=== PATIENT | female | born 2000 | race Caucasian/White ===

== ENCOUNTER 2021-04-20 20:06 | Inpatient (IN) ==
[2021-04-20] MEDS: 0.9 % Sodium Chloride 1,000 ML IVC ONE (22:20)
[2021-04-20 22:21] LABS: Mean Corpuscular Volume 89.7 fL (83.0-100.0)
[2021-04-20 22:23] LABS: Basophils # 0.1 K/mcL (0.0-0.2); Basophils % 0.3 %; Eosinophils # 0.2 K/mcL (0.0-0.6); Eosinophils % 0.9 %; Hematocrit 42.5 % (35.3-44.9); Immature Granulocytes % 0.3 % (0-4); Immature Platelets 0.7 % (1.1-6.1); Lymphocytes # 2.2 K/mcL (0.6-4.6); Lymphocytes % 12.8 %; Mean Corpuscular HGB Conc 32.9 g/dL (31.6-35.5); Mean Corpuscular Hemoglobin 29.5 pg (28.0-33.3); Mean Platelet Volume 8.2 fL (9.4-12.4); Monocytes # 1.3 K/mcL (0.0-1.3); Monocytes % 7.7 %; Neutrophils # 13.4 K/mcL (1.6-8.9); Platelet Count 390 K/mcL (140-400); Red Blood Count 4.74 M/mcL (3.82-4.97); White Blood Count 17.2 K/mcL (4.3-11.1)
[2021-04-20 22:36] LABS: BUN/Creatinine Ratio 26 (6-26); Blood Urea Nitrogen 10 mg/dL (6-20); Calcium 9.3 mg/dL (8.6-10.3); Carbon Dioxide 25 mEq/L (23-29); Chloride 101 mEq/L (98-107); Glucose 122 mg/dL (70-105); Osmolality,Calculated 282 (280-300); Potassium 3.5 mEq/L (3.5-5.1); Sodium 136 mEq/L (136-145); eGFR For African Americans > 60 (> 60); eGFR For Non-African Americans > 60 (> 60)
[2021-04-20 22:52] LABS: Influenza A PCR Negative (Negative); Influenza B PCR Negative (Negative); Resp. Syncytial Virus PCR Negative (Negative)
[2021-04-20 22:53] LABS: SARS-CoV-2 by PCR (In House) Negative (Negative)
[2021-04-21 00:14] LABS: Bacteria,Urine Few per hpf (None-Few); Bilirubin,Urine Negative (Negative); Blood,Urine Large (Negative); Clarity,Urine Ex.Turbid (Clear); Color,Urine Yellow (Yellow); Glucose,Urine (UA) Normal (Normal); Ketones,Urine Negative (Negative); Leukocyte Esterase,Urine Large (Negative); Mucus,Urine Few per lpf (None-Few); Nitrite,Urine Negative (Negative); Protein,Urine >=300 mg/dL (Neg-Trace); RBC,Urine TNTC per hpf (0-3); Squamous Epithelial Cell,Urine Few per hpf (None-Few); Urobilinogen,Urine Normal (Normal); WBC,Urine TNTC per hpf (0-3)
[2021-04-21] MEDS ORDERED: 0.9 % Sodium Chloride 1,000 ML ONE (00:28)
[2021-04-21] MEDS ORDERED: cefTRIAXone 1,000 MG in Water for inj. (sterile) 10 ML IVP ONE (00:38)
[2021-04-21] MEDS: 0.9 % Sodium Chloride 1,000 ML IVC ONE (00:58)
[2021-04-21] MEDS ORDERED: 0.9 % Sodium Chloride 1,000 ML IVC ONE ×2 (02:43→23:38)
[2021-04-21] MEDS ORDERED: Naloxone 0.4 MG/ML INJ IVP PRN (02:50)
[2021-04-21] MEDS ORDERED: *HR* Promethazine 25 MG/ML VIAL IM PRN (02:50)
[2021-04-21] MEDS ORDERED: Ondansetron 4 MG/2 ML VIAL IVP PRN (02:50)
[2021-04-21] MEDS: *HR* Heparin 5,000 UNIT/ML VIAL SQ SCH ×2 (06:30→17:31)
[2021-04-21] MEDS: 0.9 % Sodium Chloride 1,000 ML IVC SCH ×4 (06:36→21:44)
[2021-04-21 06:41] LABS: Basophils # 0.1 K/mcL (0.0-0.2); Basophils % 0.8 %; Eosinophils % 1.1 %; Hemoglobin 10.9 g/dL (11.5-15.4); Immature Granulocytes % 1.1 % (0-4); Immature Platelets 1.3 % (1.1-6.1); Lymphocytes # 1.5 K/mcL (0.6-4.6); Lymphocytes % 11.1 %; Mean Corpuscular Hemoglobin 29.4 pg (28.0-33.3); Mean Corpuscular Volume 88.9 fL (83.0-100.0); Mean Platelet Volume 8.7 fL (9.4-12.4); Monocytes % 7.6 %; Neutrophils # 10.3 K/mcL (1.6-8.9); Nucleated Red Blood Cells 0.2 /100 WBC (0); Platelet Count 276 K/mcL (140-400); Red Blood Count 3.71 M/mcL (3.82-4.97); Segmented Neutrophils % 78.3 %; White Blood Count 13.1 K/mcL (4.3-11.1)
[2021-04-21 06:42] LABS: Eosinophils # 0.1 K/mcL (0.0-0.6)
[2021-04-21 06:56] LABS: Alanine Aminotransferase 12 Units/L (7-52); Albumin 3.3 g/dL (3.5-5.7); Albumin/Globulin Ratio 1.4 (1.1-2.2); Alkaline Phosphatase 68 Units/L (34-104); Aspartate Amino Transferase 20 Units/L (13-39); BUN/Creatinine Ratio 39 (6-26); Bilirubin,Total 0.4 mg/dL (0.3-1.0); Blood Urea Nitrogen 9 mg/dL (6-20); Calcium 8.4 mg/dL (8.6-10.3); Carbon Dioxide 26 mEq/L (23-29); Chloride 106 mEq/L (98-107); Globulin 2.4 g/dL (2.4-3.5); Glucose 124 mg/dL (70-105); Osmolality,Calculated 288 (280-300); Potassium 3.8 mEq/L (3.5-5.1); Sodium 139 mEq/L (136-145); Total Protein 5.7 g/dL (6.4-8.9); eGFR For African Americans > 60 (> 60); eGFR For Non-African Americans > 60 (> 60)
[2021-04-21] MEDS: Norepinephrine 4 MG/254 ML IV.SOLN IVC SCH ×2 (09:47→10:00)
[2021-04-21] MEDS: Acetaminophen 325 MG TABLET PO PRN ×2 (10:01→21:45)
[2021-04-21] MEDS: Baclofen 10 MG TABLET PO SCH ×2 (14:18→20:03)
[2021-04-21] MEDS: Aspirin Enteric Coated 81 MG Tablet PO SCH (14:18)
[2021-04-21] MEDS: Gabapentin 300 MG CAPSULE PO SCH ×2 (14:18→20:03)
[2021-04-22 02:31] LABS: Basophils % 0.5 %; Eosinophils # 0.3 K/mcL (0.0-0.6); Eosinophils % 5.1 %; Hematocrit 30.1 % (35.3-44.9); Hemoglobin 9.6 g/dL (11.5-15.4); Immature Granulocytes % 0.2 % (0-4); Lymphocytes # 2.1 K/mcL (0.6-4.6); Lymphocytes % 32.2 %; Mean Corpuscular HGB Conc 31.9 g/dL (31.6-35.5); Mean Corpuscular Hemoglobin 29.4 pg (28.0-33.3); Mean Platelet Volume 8.3 fL (9.4-12.4); Monocytes # 0.4 K/mcL (0.0-1.3); Monocytes % 6.5 %; Neutrophils # 3.6 K/mcL (1.6-8.9); Platelet Count 239 K/mcL (140-400); Red Blood Count 3.27 M/mcL (3.82-4.97); Red Cell Distribution Width 13.2 % (11.5-14.5); Segmented Neutrophils % 55.5 %
[2021-04-22 02:32] LABS: White Blood Count 6.4 K/mcL (4.3-11.1)
[2021-04-22 02:52] LABS: BUN/Creatinine Ratio 28 (6-26); Blood Urea Nitrogen 7 mg/dL (6-20); Calcium 7.7 mg/dL (8.6-10.3); Carbon Dioxide 26 mEq/L (23-29); Chloride 111 mEq/L (98-107); Glucose 102 mg/dL (70-105); Osmolality,Calculated 290 (280-300); Potassium 2.9 mEq/L (3.5-5.1); Sodium 141 mEq/L (136-145); eGFR For African Americans > 60 (> 60); eGFR For Non-African Americans > 60 (> 60)
[2021-04-22] MEDS: 0.9 % Sodium Chloride 1,000 ML IVC SCH ×2 (03:44→08:29)
[2021-04-22] MEDS: *HR* Heparin 5,000 UNIT/ML VIAL SQ SCH ×2 (05:26→17:36)
[2021-04-22] MEDS ORDERED: Potassium Chloride 40 MEQ, Lidocaine 1% 2 ML in 0.9 % Sodium Chloride 500 ML IVPB ONE (07:58)
[2021-04-22] MEDS: Baclofen 10 MG TABLET PO SCH ×3 (08:21→20:35)
[2021-04-22] MEDS: PARoxetine 10 MG TABLET PO SCH (08:21)
[2021-04-22] MEDS: Gabapentin 300 MG CAPSULE PO SCH ×3 (08:21→20:35)
[2021-04-22] MEDS: Aspirin Enteric Coated 81 MG Tablet PO SCH (08:22)
[2021-04-22] MEDS: cefTRIAXone 1,000 MG in Water for inj. (sterile) 10 ML IVP SCH (08:22)
[2021-04-22] MEDS: Acetaminophen 325 MG TABLET PO PRN ×2 (08:32→14:45)
[2021-04-22] MEDS: *HR* HYDROcodone/Acet 5/325 mg TABLET PO PRN ×2 (10:56→20:35)
[2021-04-22] MEDS ORDERED: Sennosides 8.6 MG TABLET PO SCH (21:00)
[2021-04-23] MEDS: *HR* Heparin 5,000 UNIT/ML VIAL SQ SCH (05:20)
[2021-04-23 05:49] LABS: Basophils # 0.1 K/mcL (0.0-0.2); Basophils % 0.7 %; Eosinophils # 0.3 K/mcL (0.0-0.6); Eosinophils % 3.9 %; Hematocrit 32.3 % (35.3-44.9); Hemoglobin 10.3 g/dL (11.5-15.4); Immature Granulocytes % 0.1 % (0-4); Lymphocytes # 2.4 K/mcL (0.6-4.6); Lymphocytes % 35.6 %; Mean Corpuscular HGB Conc 31.9 g/dL (31.6-35.5); Mean Corpuscular Hemoglobin 29.1 pg (28.0-33.3); Mean Corpuscular Volume 91.2 fL (83.0-100.0); Mean Platelet Volume 8.3 fL (9.4-12.4); Monocytes # 0.4 K/mcL (0.0-1.3); Monocytes % 6.4 %; Neutrophils # 3.6 K/mcL (1.6-8.9); Platelet Count 263 K/mcL (140-400); Red Blood Count 3.54 M/mcL (3.82-4.97); Segmented Neutrophils % 53.3 %; White Blood Count 6.9 K/mcL (4.3-11.1)
[2021-04-23 06:15] LABS: BUN/Creatinine Ratio 18 (6-26); Blood Urea Nitrogen 4 mg/dL (6-20); Calcium 9.1 mg/dL (8.6-10.3); Carbon Dioxide 29 mEq/L (23-29); Chloride 106 mEq/L (98-107); Glucose 90 mg/dL (70-105); Osmolality,Calculated 286 (280-300); Potassium 4.3 mEq/L (3.5-5.1); Sodium 140 mEq/L (136-145); eGFR For African Americans > 60 (> 60); eGFR For Non-African Americans > 60 (> 60)
[2021-04-23] MEDS: Baclofen 10 MG TABLET PO SCH (07:58)
[2021-04-23] MEDS: Aspirin Enteric Coated 81 MG Tablet PO SCH (07:58)
[2021-04-23] MEDS: Gabapentin 300 MG CAPSULE PO SCH (07:58)
[2021-04-23] MEDS: PARoxetine 10 MG TABLET PO SCH (07:58)
[2021-04-23] MEDS: cefTRIAXone 1,000 MG in Water for inj. (sterile) 10 ML IVP SCH (07:59)
[2021-04-23 10:39] VITALS: BP 113/74; PULSE 78; TEMP 98.3; O2SAT 99
== END 2021-04-23 16:41 | disposition home or self-care (01) | DRG 698 ==
LOC: EMEROOARM 20:06 → 3NENU 20:06 → SUATTDRO 04-21 03:53 → 3NENU 04-21 04:41 → SUATTDRO 04-22 19:52
PROVIDERS: ADMIT Family Medicine; ATTEND Internal Medicine

== ENCOUNTER 2021-06-30 00:42 | Inpatient (IN) ==
[2021-06-30] MEDS ORDERED: Melatonin 3 MG TABLET PO PRN (03:56)
[2021-06-30] MEDS ORDERED: *HR* OxyCODONE Immed Rel 5 MG TABLET PO PRN (03:56)
[2021-06-30] MEDS ORDERED: Ondansetron 4 MG/2 ML VIAL IVP PRN (03:56)
[2021-06-30] MEDS ORDERED: Acetaminophen 325 MG TABLET PO PRN (03:56)
[2021-06-30] MEDS ORDERED: Naloxone 0.4 MG/ML INJ IVP PRN (03:56)
[2021-06-30] MEDS ORDERED: Remdesivir 200 MG in 0.9 % Sodium Chloride 100 ML IVPB ONE (06:00)
[2021-06-30] MEDS: *HR* Enoxaparin 40 MG/0.4 ML SYRINGE SQ SCH (06:22)
[2021-06-30] MEDS: Gabapentin 300 MG CAPSULE PO SCH ×3 (07:51→20:42)
[2021-06-30] MEDS: Dexamethasone Sodium Phos/PF 10 MG/ML VIAL IVP SCH (07:52)
[2021-06-30] MEDS ORDERED: Metoprolol XL (24 HR) Succ 25 MG TAB.ER.24H PO SCH (12:45)
[2021-06-30] MEDS ORDERED: Isovue-370 500 ML BOTTLE IVP ONE (13:52)
[2021-06-30 13:58] LABS: Hematocrit 41.7 % (35.3-44.9); Hemoglobin 13.2 g/dL (11.5-15.4); Immature Granulocytes % 0.2 % (0-4); Lymphocytes # 0.6 K/mcL (0.6-4.6); Lymphocytes % 13.7 %; Mean Corpuscular HGB Conc 31.7 g/dL (31.6-35.5); Mean Corpuscular Hemoglobin 29.1 pg (28.0-33.3); Mean Corpuscular Volume 92.1 fL (83.0-100.0); Mean Platelet Volume 8.4 fL (9.4-12.4); Monocytes # 0.1 K/mcL (0.0-1.3); Monocytes % 2.7 %; Neutrophils # 3.3 K/mcL (1.6-8.9); Platelet Count 267 K/mcL (140-400); Red Blood Count 4.53 M/mcL (3.82-4.97); Red Cell Distribution Width 13.3 % (11.5-14.5); Segmented Neutrophils % 83.4 %
[2021-06-30 14:04] LABS: INR 1.2; Prothrombin Time 13.4 Seconds (9.4-12.1)
[2021-06-30 14:26] LABS: Alanine Aminotransferase 9 Units/L (7-52); Albumin 4.3 g/dL (3.5-5.7); Albumin/Globulin Ratio 1.3 (1.1-2.2); Alkaline Phosphatase 72 Units/L (34-104); Aspartate Amino Transferase 16 Units/L (13-39); BUN/Creatinine Ratio 11 (6-26); Bilirubin,Total 0.2 mg/dL (0.3-1.0); Blood Urea Nitrogen 4 mg/dL (6-20); C-Reactive Protein 21 mg/L (Less than 10); Calcium 8.9 mg/dL (8.6-10.3); Carbon Dioxide 21 mEq/L (23-29); Chloride 102 mEq/L (98-107); Chol/HDL Ratio 5.4 (0-4.9); Cholesterol 182 mg/dL (< 200); Ferritin 244 ng/mL (10-120); Globulin 3.2 g/dL (2.4-3.5); Glucose 264 mg/dL (70-105); HDL Cholesterol 34 mg/dL (40-59); LDL Cholesterol,Calculated 125 mg/dL (< 100); Lactate Dehydrogenase 201 Units/L (140-271); Magnesium 1.8 mg/dL (1.6-2.6); Osmolality,Calculated 292 (280-300); Phosphorous 2.2 mg/dL (2.7-4.5); Sodium 138 mEq/L (136-145); Total Protein 7.5 g/dL (6.4-8.9); Triglycerides 116 mg/dL (< 150); eGFR For African Americans > 60 (> 60); eGFR For Non-African Americans > 60 (> 60)
[2021-06-30] MEDS ORDERED: Dextrose Gel 15 GM/37.5 ML TUBE PO PRN ×2 (14:56)
[2021-06-30] MEDS ORDERED: *HR* Dextrose 50 % in Water (Syg) 50 ML SYRINGE IVP PRN (14:56)
[2021-06-30] MEDS ORDERED: D5% in Water 1,000 ML IVC PRN (14:56)
[2021-06-30] MEDS: Baclofen 10 MG TABLET PO SCH ×2 (15:11→20:43)
[2021-06-30] MEDS: levoFLOXacin 750 MG/150 ML 750 MG/150 ML BAG IVPB SCH (15:12)
[2021-06-30] MEDS: Insulin LISPRO 300 UNITS/3 ML VIAL SUBQ SCH (17:01)
[2021-06-30] MEDS ORDERED: Metoprolol XL (24 HR) Succ 25 MG TAB.ER.24H PO ONE (17:54)
[2021-06-30] MEDS ORDERED: Ringers Solution, Lactated 500 ML IVC SCH (18:00)
[2021-06-30] MEDS: Sennosides 8.6 MG TABLET PO SCH (20:43)
[2021-06-30] MEDS: *HR* HYDROcodone/Acet 5/325 mg TABLET PO PRN (23:02)
[2021-07-01] MEDS ORDERED: Ringers Solution, Lactated 500 ML IVC ONE (03:45)
[2021-07-01] MEDS: Remdesivir 100 MG in 0.9 % Sodium Chloride 100 ML IVPB SCH (04:14)
[2021-07-01 04:48] LABS: Estimated Average Glucose 103 mg/dl; Hemoglobin A1C 5.2 %
[2021-07-01 04:56] LABS: Albumin 3.6 g/dL (3.5-5.7); Albumin/Globulin Ratio 1.5 (1.1-2.2); Bilirubin,Indirect 0.2 mg/dL (0.0-1.0); Bilirubin,Total 0.2 mg/dL (0.3-1.0); Globulin 2.4 g/dL (2.4-3.5)
[2021-07-01] MEDS: *HR* Enoxaparin 40 MG/0.4 ML SYRINGE SQ SCH (05:27)
[2021-07-01] MEDS ORDERED: Ringers Solution, Lactated 500 ML IVC SCH (07:30)
[2021-07-01] MEDS ORDERED: DAPTOmycin 750 MG in 0.9 % Sodium Chloride 100 ML IVPB SCH (08:00)
[2021-07-01] MEDS: Insulin LISPRO 300 UNITS/3 ML VIAL SUBQ SCH ×3 (08:21→16:10)
[2021-07-01] MEDS: Gabapentin 300 MG CAPSULE PO SCH ×3 (08:22→20:56)
[2021-07-01] MEDS: Aspirin Enteric Coated 81 MG Tablet PO SCH (08:22)
[2021-07-01] MEDS: PARoxetine 10 MG TABLET PO SCH (08:22)
[2021-07-01] MEDS: Baclofen 10 MG TABLET PO SCH ×3 (08:22→20:57)
[2021-07-01] MEDS: Cholecalciferol (D-3) 1,000 UNIT (25MCG) TABLET PO SCH (08:22)
[2021-07-01] MEDS: Ascorbic Acid 500 MG TABLET PO SCH (08:22)
[2021-07-01] MEDS: levoFLOXacin 750 MG/150 ML 750 MG/150 ML BAG IVPB SCH (08:23)
[2021-07-01] MEDS: Dexamethasone Sodium Phos/PF 10 MG/ML VIAL IVP SCH (09:48)
[2021-07-01] MEDS: Nitrofurantoin (BID) 100 MG CAPSULE PO SCH (15:31)
[2021-07-01] MEDS: Sennosides 8.6 MG TABLET PO SCH (20:57)
[2021-07-01] MEDS: *HR* HYDROcodone/Acet 5/325 mg TABLET PO PRN (23:28)
[2021-07-02] MEDS: Remdesivir 100 MG in 0.9 % Sodium Chloride 100 ML IVPB SCH (04:23)
[2021-07-02 05:11] LABS: Albumin 3.8 g/dL (3.5-5.7); Albumin/Globulin Ratio 1.4 (1.1-2.2); Bilirubin,Indirect 0.3 mg/dL (0.0-1.0); Bilirubin,Total 0.3 mg/dL (0.3-1.0); Globulin 2.7 g/dL (2.4-3.5); Total Protein 6.5 g/dL (6.4-8.9)
[2021-07-02 05:12] LABS: BUN/Creatinine Ratio 43 (6-26); Blood Urea Nitrogen 9 mg/dL (6-20); Calcium 8.5 mg/dL (8.6-10.3); Carbon Dioxide 28 mEq/L (23-29); Chloride 104 mEq/L (98-107); Glucose 113 mg/dL (70-105); Magnesium 2.1 mg/dL (1.6-2.6); Osmolality,Calculated 285 (280-300); Phosphorous 2.5 mg/dL (2.7-4.5); Potassium 3.9 mEq/L (3.5-5.1); Sodium 138 mEq/L (136-145); eGFR For African Americans > 60 (> 60); eGFR For Non-African Americans > 60 (> 60)
[2021-07-02] MEDS: *HR* Enoxaparin 40 MG/0.4 ML SYRINGE SQ SCH (05:30)
[2021-07-02] MEDS: Insulin LISPRO 300 UNITS/3 ML VIAL SUBQ SCH (07:59)
[2021-07-02] MEDS: PARoxetine 10 MG TABLET PO SCH (08:00)
[2021-07-02] MEDS: Aspirin Enteric Coated 81 MG Tablet PO SCH (08:00)
[2021-07-02] MEDS: Gabapentin 300 MG CAPSULE PO SCH (08:00)
[2021-07-02] MEDS: Cholecalciferol (D-3) 1,000 UNIT (25MCG) TABLET PO SCH (08:00)
[2021-07-02] MEDS: Ascorbic Acid 500 MG TABLET PO SCH (08:00)
[2021-07-02] MEDS: Baclofen 10 MG TABLET PO SCH (08:00)
[2021-07-02] MEDS: Nitrofurantoin (BID) 100 MG CAPSULE PO SCH (08:00)
[2021-07-02] MEDS: Dexamethasone Sodium Phos/PF 10 MG/ML VIAL IVP SCH (08:03)
[2021-07-02 11:05] VITALS: O2SAT 95
[2021-07-02 11:07] VITALS: BP 106/58; PULSE 89; TEMP 98.2
== END 2021-07-02 15:35 | disposition home or self-care (01) | DRG 177 ==
LOC: 2NENU → SUATTDRO 03:12
PROVIDERS: ADMIT Family Medicine; ATTEND Family Medicine

== ENCOUNTER 2021-09-19 22:40 | Inpatient (IN) ==
[2021-09-20] MEDS ORDERED: Naloxone 0.4 MG/ML INJ IVP PRN (05:40)
[2021-09-20] MEDS ORDERED: Melatonin 3 MG TABLET PO PRN (05:40)
[2021-09-20] MEDS: 0.9 % Sodium Chloride 1,000 ML IVC SCH ×2 (06:05→16:14)
[2021-09-20] MEDS ORDERED: Perflutren Lipid Microsphere 1.3 ML in 0.9 % Sodium Chloride 8.7 ML IVP PRN (06:35)
[2021-09-20 09:00] LABS: Basophils % 0.4 %; Eosinophils % 0.7 %; Hematocrit 40.2 % (35.3-44.9); Hemoglobin 13.4 g/dL (11.5-15.4); Immature Granulocytes % 0.6 % (0-4); Lymphocytes # 0.9 K/mcL (0.6-4.6); Lymphocytes % 16.2 %; Mean Corpuscular HGB Conc 33.3 g/dL (31.6-35.5); Mean Corpuscular Hemoglobin 29.1 pg (28.0-33.3); Mean Corpuscular Volume 87.4 fL (83.0-100.0); Monocytes # 0.2 K/mcL (0.0-1.3); Monocytes % 3.5 %; Neutrophils # 4.3 K/mcL (1.6-8.9); Platelet Count 278 K/mcL (140-400); Red Cell Distribution Width 12.3 % (11.5-14.5); Segmented Neutrophils % 78.6 %; White Blood Count 5.4 K/mcL (4.3-11.1)
[2021-09-20] MEDS ORDERED: levoFLOXacin 500 MG/100 ML 500 MG/100 ML BAG IVPB SCH (09:00)
[2021-09-20 09:31] LABS: Blood Urea Nitrogen 5 mg/dL (6-20); Calcium 8.6 mg/dL (8.6-10.3); Carbon Dioxide 20 mEq/L (23-29); Chloride 109 mEq/L (98-107); Glucose 103 mg/dL (70-105); Magnesium 1.7 mg/dL (1.6-2.6); Osmolality,Calculated 286 (280-300); Potassium 5.1 mEq/L (3.5-5.1); Sodium 139 mEq/L (136-145)
[2021-09-20] MEDS ORDERED: Isovue-370 500 ML BOTTLE IVP ONE ×2 (09:40→09:41)
[2021-09-20] MEDS: Gabapentin 300 MG CAPSULE PO SCH ×3 (10:28→21:35)
[2021-09-20] MEDS: Baclofen 10 MG TABLET PO SCH ×3 (10:28→21:35)
[2021-09-20] MEDS: PARoxetine 20 MG TABLET PO SCH (10:28)
[2021-09-20] MEDS ORDERED: ALPRAZolam 0.5 MG TABLET PO PRN (11:43)
[2021-09-20] MEDS ORDERED: *HR* HYDROcodone/Acet 5/325 mg TABLET PO PRN (11:51)
[2021-09-20] MEDS: Bisacodyl 10 MG RECTAL SUPPOSITORY RC SCH (16:13)
[2021-09-20] MEDS ORDERED: 0.9 % Sodium Chloride 500 ML IVC ONE (16:51)
[2021-09-20] MEDS ORDERED: DAPTOmycin 400 MG in 0.9 % Sodium Chloride 100 ML IVPB SCH (17:00)
[2021-09-20] MEDS: DAPTOmycin 400 MG in 0.9 % Sodium Chloride 100 ML IVPB SCH (18:38)
[2021-09-20] MEDS: Acetaminophen 325 MG TABLET PO PRN (19:47)
[2021-09-20] MEDS: levoFLOXacin 750 MG/150 ML 750 MG/150 ML BAG IVPB SCH (21:35)
[2021-09-20] MEDS: Sennosides 8.6 MG TABLET PO SCH (21:35)
[2021-09-21] MEDS: Acetaminophen 325 MG TABLET PO PRN (02:31)
[2021-09-21 04:56] LABS: Mean Corpuscular HGB Conc 32.7 g/dL (31.6-35.5); Mean Corpuscular Hemoglobin 30.2 pg (28.0-33.3); Mean Corpuscular Volume 92.2 fL (83.0-100.0); Mean Platelet Volume 8.6 fL (9.4-12.4); Platelet Count 246 K/mcL (140-400); Red Blood Count 3.58 M/mcL (3.82-4.97); Red Cell Distribution Width 12.6 % (11.5-14.5); White Blood Count 5.6 K/mcL (4.3-11.1)
[2021-09-21 05:00] LABS: Hemoglobin 10.8 g/dL (11.5-15.4)
[2021-09-21 05:20] LABS: BUN/Creatinine Ratio 37 (6-26); Blood Urea Nitrogen 10 mg/dL (6-20); Calcium 7.9 mg/dL (8.6-10.3); Carbon Dioxide 24 mEq/L (23-29); Chloride 111 mEq/L (98-107); Glucose 98 mg/dL (70-105); Magnesium 1.6 mg/dL (1.6-2.6); Osmolality,Calculated 293 (280-300); Phosphorous 2.9 mg/dL (2.7-4.5); Potassium 3.4 mEq/L (3.5-5.1); Sodium 142 mEq/L (136-145); eGFR For African Americans > 60 (> 60); eGFR For Non-African Americans > 60 (> 60)
[2021-09-21] MEDS: 0.9 % Sodium Chloride 1,000 ML IVC SCH ×2 (05:56→09:03)
[2021-09-21] MEDS ORDERED: Potassium Chloride Elixir 20 MEQ/15 ML UDC PO ONE (09:00)
[2021-09-21] MEDS: PARoxetine 20 MG TABLET PO SCH (09:02)
[2021-09-21] MEDS: Baclofen 10 MG TABLET PO SCH ×3 (09:02→20:57)
[2021-09-21] MEDS: Gabapentin 300 MG CAPSULE PO SCH ×3 (09:02→20:57)
[2021-09-21] MEDS: Bisacodyl 10 MG RECTAL SUPPOSITORY RC SCH (09:04)
[2021-09-21 14:14] LABS: Hematocrit 35.1 % (35.3-44.9); Hemoglobin 11.4 g/dL (11.5-15.4)
[2021-09-21] MEDS: polyethylene glycoL 3350 17 GM POWD.PACK PO SCH (15:47)
[2021-09-21] MEDS: DAPTOmycin 400 MG in 0.9 % Sodium Chloride 100 ML IVPB SCH (17:53)
[2021-09-21] MEDS: Sennosides 8.6 MG TABLET PO SCH (20:57)
[2021-09-21] MEDS: levoFLOXacin 750 MG/150 ML 750 MG/150 ML BAG IVPB SCH (20:57)
[2021-09-22] MEDS: 0.9 % Sodium Chloride 1,000 ML IVC SCH ×2 (01:14→15:47)
[2021-09-22] MEDS: Baclofen 10 MG TABLET PO SCH ×3 (07:34→20:26)
[2021-09-22] MEDS: Gabapentin 300 MG CAPSULE PO SCH ×3 (07:35→20:26)
[2021-09-22] MEDS: polyethylene glycoL 3350 17 GM POWD.PACK PO SCH (07:35)
[2021-09-22] MEDS: PARoxetine 20 MG TABLET PO SCH (07:41)
[2021-09-22] MEDS: Acetaminophen 325 MG TABLET PO PRN ×2 (07:42→20:26)
[2021-09-22 08:10] LABS: Basophils % 0.7 %; Eosinophils # 0.1 K/mcL (0.0-0.6); Eosinophils % 2.1 %; Hematocrit 34.9 % (35.3-44.9); Hemoglobin 11.1 g/dL (11.5-15.4); Lymphocytes # 2.3 K/mcL (0.6-4.6); Lymphocytes % 54.8 %; Mean Corpuscular HGB Conc 31.8 g/dL (31.6-35.5); Mean Corpuscular Hemoglobin 29.4 pg (28.0-33.3); Mean Corpuscular Volume 92.6 fL (83.0-100.0); Mean Platelet Volume 8.4 fL (9.4-12.4); Monocytes # 0.4 K/mcL (0.0-1.3); Monocytes % 8.3 %; Neutrophils # 1.4 K/mcL (1.6-8.9); Platelet Count 229 K/mcL (140-400); Red Blood Count 3.77 M/mcL (3.82-4.97); Red Cell Distribution Width 12.4 % (11.5-14.5); Segmented Neutrophils % 34.1 %; White Blood Count 4.2 K/mcL (4.3-11.1)
[2021-09-22 08:29] LABS: BUN/Creatinine Ratio 25 (6-26); Blood Urea Nitrogen 5 mg/dL (6-20); Calcium 8.6 mg/dL (8.6-10.3); Carbon Dioxide 30 mEq/L (23-29); Chloride 107 mEq/L (98-107); Glucose 90 mg/dL (70-105); Osmolality,Calculated 287 (280-300); Potassium 3.6 mEq/L (3.5-5.1); Sodium 140 mEq/L (136-145); eGFR For African Americans > 60 (> 60); eGFR For Non-African Americans > 60 (> 60)
[2021-09-22] MEDS: cefTRIAXone 1,000 MG in 0.9 % Sodium Chloride 10 ML IVP SCH (13:02)
[2021-09-22] MEDS: DAPTOmycin 500 MG in 0.9 % Sodium Chloride 100 ML IVPB SCH (16:59)
[2021-09-22] MEDS: Sennosides 8.6 MG TABLET PO SCH (20:26)
[2021-09-23 03:31] LABS: BUN/Creatinine Ratio 19 (6-26); Blood Urea Nitrogen 5 mg/dL (6-20); Carbon Dioxide 27 mEq/L (23-29); Chloride 105 mEq/L (98-107); Glucose 90 mg/dL (70-105); Osmolality,Calculated 285 (280-300); Potassium 3.7 mEq/L (3.5-5.1); Sodium 139 mEq/L (136-145); eGFR For African Americans > 60 (> 60); eGFR For Non-African Americans > 60 (> 60)
[2021-09-23] MEDS: cefTRIAXone 1,000 MG in 0.9 % Sodium Chloride 10 ML IVP SCH (07:38)
[2021-09-23] MEDS: PARoxetine 20 MG TABLET PO SCH (07:53)
[2021-09-23] MEDS: Baclofen 10 MG TABLET PO SCH ×3 (07:53→20:19)
[2021-09-23] MEDS: Gabapentin 300 MG CAPSULE PO SCH ×3 (07:54→20:19)
[2021-09-23] MEDS: DAPTOmycin 500 MG in 0.9 % Sodium Chloride 100 ML IVPB SCH (18:34)
[2021-09-23] MEDS: Sennosides 8.6 MG TABLET PO SCH (20:19)
[2021-09-24] MEDS ORDERED: 0.9 % Sodium Chloride 500 ML IVC ONE (03:03)
[2021-09-24] MEDS: Gabapentin 300 MG CAPSULE PO SCH ×3 (08:46→21:44)
[2021-09-24] MEDS: Baclofen 10 MG TABLET PO SCH ×3 (08:46→21:44)
[2021-09-24] MEDS: cefTRIAXone 1,000 MG in 0.9 % Sodium Chloride 10 ML IVP SCH (08:46)
[2021-09-24] MEDS: PARoxetine 20 MG TABLET PO SCH (08:47)
[2021-09-24 13:51] LABS: Alanine Aminotransferase 9 Units/L (7-52); Albumin 3.7 g/dL (3.5-5.7); Albumin/Globulin Ratio 1.6 (1.1-2.2); Alkaline Phosphatase 47 Units/L (34-104); Aspartate Amino Transferase 15 Units/L (13-39); BUN/Creatinine Ratio 27 (6-26); Bilirubin,Direct 0.1 mg/dL (0.0-0.2); Bilirubin,Indirect 0.2 mg/dL (0.0-1.0); Bilirubin,Total 0.3 mg/dL (0.3-1.0); Blood Urea Nitrogen 8 mg/dL (6-20); Calcium 8.6 mg/dL (8.6-10.3); Carbon Dioxide 26 mEq/L (23-29); Chloride 106 mEq/L (98-107); Globulin 2.3 g/dL (2.4-3.5); Glucose 91 mg/dL (70-105); Osmolality,Calculated 286 (280-300); Potassium 4.2 mEq/L (3.5-5.1); Sodium 139 mEq/L (136-145); eGFR For African Americans > 60 (> 60); eGFR For Non-African Americans > 60 (> 60)
[2021-09-24] MEDS: DAPTOmycin 500 MG in 0.9 % Sodium Chloride 100 ML IVPB SCH (17:25)
[2021-09-24] MEDS: Sennosides 8.6 MG TABLET PO SCH (21:45)
[2021-09-25 00:51] VITALS: O2SAT 100
[2021-09-25 05:59] LABS: Basophils % 0.4 %; Eosinophils # 0.1 K/mcL (0.0-0.6); Eosinophils % 0.8 %; Hematocrit 36.4 % (35.3-44.9); Hemoglobin 11.7 g/dL (11.5-15.4); Immature Granulocytes % 0.3 % (0-4); Lymphocytes # 2.8 K/mcL (0.6-4.6); Lymphocytes % 28.6 %; Mean Corpuscular HGB Conc 32.1 g/dL (31.6-35.5); Mean Corpuscular Hemoglobin 29.8 pg (28.0-33.3); Mean Corpuscular Volume 92.9 fL (83.0-100.0); Mean Platelet Volume 8.9 fL (9.4-12.4); Monocytes # 0.7 K/mcL (0.0-1.3); Monocytes % 7.4 %; Platelet Count 260 K/mcL (140-400); Red Blood Count 3.92 M/mcL (3.82-4.97); Red Cell Distribution Width 12.8 % (11.5-14.5); Segmented Neutrophils % 62.5 %
[2021-09-25 06:10] LABS: BUN/Creatinine Ratio 30 (6-26); Blood Urea Nitrogen 7 mg/dL (6-20); Calcium 9.1 mg/dL (8.6-10.3); Carbon Dioxide 27 mEq/L (23-29); Chloride 102 mEq/L (98-107); Glucose 88 mg/dL (70-105); Osmolality,Calculated 283 (280-300); Potassium 4.2 mEq/L (3.5-5.1); Sodium 138 mEq/L (136-145); eGFR For African Americans > 60 (> 60); eGFR For Non-African Americans > 60 (> 60)
[2021-09-25 06:17] LABS: White Blood Count 9.6 K/mcL (4.3-11.1)
[2021-09-25] MEDS ORDERED: CLEAR EYES NATURAL TEARS 15 ML BOTTLE BOTH EYES PRN (06:35)
[2021-09-25] MEDS: Gabapentin 300 MG CAPSULE PO SCH ×3 (07:53→21:59)
[2021-09-25] MEDS: levoFLOXacin 750 MG TABLET PO SCH (07:53)
[2021-09-25] MEDS: PARoxetine 20 MG TABLET PO SCH (07:53)
[2021-09-25] MEDS: Baclofen 10 MG TABLET PO SCH ×3 (07:53→22:00)
[2021-09-25] MEDS ORDERED: DAPTOmycin 500 MG in 0.9 % Sodium Chloride 100 ML IVPB ONE (15:00)
[2021-09-25] MEDS: Acetaminophen 325 MG TABLET PO PRN (21:59)
[2021-09-25] MEDS: Sennosides 8.6 MG TABLET PO SCH (21:59)
[2021-09-26] MEDS: Baclofen 10 MG TABLET PO SCH ×2 (07:55→14:15)
[2021-09-26] MEDS: levoFLOXacin 750 MG TABLET PO SCH (07:55)
[2021-09-26] MEDS: Gabapentin 300 MG CAPSULE PO SCH ×2 (07:55→14:14)
[2021-09-26] MEDS: PARoxetine 20 MG TABLET PO SCH (07:55)
[2021-09-26] MEDS ORDERED: DAPTOmycin 500 MG in 0.9 % Sodium Chloride 100 ML IVPB ONE (12:00)
[2021-09-26 14:47] VITALS: BP 99/70; PULSE 105; TEMP 99
== END 2021-09-26 15:50 | disposition home health service (06) | DRG 698 ==
LOC: 3NENU → SUATTDRO 09-20 05:04
PROVIDERS: ADMIT Family Medicine; ATTEND General Practice

== ENCOUNTER 2021-10-21 20:21 | Observation (INO) ==
[2021-10-21] MEDS ORDERED: 0.9 % Sodium Chloride 2,000 ML IV ONE (23:17)
[2021-10-21] MEDS ORDERED: cefTRIAXone 1,000 MG in 0.9 % Sodium Chloride Mini Bag 100 ML IVPB ONE (23:18)
[2021-10-22] MEDS ORDERED: *HR* HYDROcodone/Acet 5/325 mg TABLET PO ONE (00:01)
[2021-10-22 00:14] LABS: Basophils # 0.1 K/mcL (0.0-0.2); Basophils % 0.7 %; Eosinophils # 0.1 K/mcL (0.0-0.6); Eosinophils % 1.7 %; Hematocrit 42.4 % (35.3-44.9); Hemoglobin 13.4 g/dL (11.5-15.4); Immature Granulocytes % 0.3 % (0-4); Lymphocytes # 2.9 K/mcL (0.6-4.6); Lymphocytes % 38.9 %; Mean Corpuscular HGB Conc 31.6 g/dL (31.6-35.5); Mean Corpuscular Hemoglobin 29.3 pg (28.0-33.3); Mean Corpuscular Volume 92.6 fL (83.0-100.0); Mean Platelet Volume 8.5 fL (9.4-12.4); Monocytes # 0.6 K/mcL (0.0-1.3); Monocytes % 8.1 %; Neutrophils # 3.8 K/mcL (1.6-8.9); Platelet Count 284 K/mcL (140-400); Red Blood Count 4.58 M/mcL (3.82-4.97); Red Cell Distribution Width 12.5 % (11.5-14.5); Segmented Neutrophils % 50.3 %; White Blood Count 7.5 K/mcL (4.3-11.1)
[2021-10-22 00:31] LABS: Alanine Aminotransferase 12 Units/L (7-52); Albumin 4.4 g/dL (3.5-5.7); Albumin/Globulin Ratio 1.3 (1.1-2.2); Alkaline Phosphatase 73 Units/L (34-104); Aspartate Amino Transferase 17 Units/L (13-39); BUN/Creatinine Ratio 31 (6-26); Bilirubin,Direct 0.1 mg/dL (0.0-0.2); Bilirubin,Indirect 0.2 mg/dL (0.0-1.0); Bilirubin,Total 0.3 mg/dL (0.3-1.0); Blood Urea Nitrogen 12 mg/dL (6-20); Calcium 9.7 mg/dL (8.6-10.3); Carbon Dioxide 28 mEq/L (23-29); Chloride 101 mEq/L (98-107); Globulin 3.3 g/dL (2.4-3.5); Glucose 90 mg/dL (70-105); Osmolality,Calculated 285 (280-300); Potassium 3.9 mEq/L (3.5-5.1); Sodium 138 mEq/L (136-145); Total Protein 7.7 g/dL (6.4-8.9); eGFR For African Americans > 60 (> 60); eGFR For Non-African Americans > 60 (> 60)
[2021-10-22 01:16] LABS: Bilirubin,Urine Negative (Negative); Blood,Urine Moderate (Negative); Clarity,Urine Turbid (Clear); Color,Urine Yellow (Yellow); Glucose,Urine (UA) Normal (Normal); Ketones,Urine Negative (Negative); Leukocyte Esterase,Urine Moderate (Negative); Nitrite,Urine Negative (Negative); PH,Urine 5.5 pH Units (5.0-8.0); Protein,Urine 100 mg/dL (Neg-Trace); Specific Gravity,Urine >= 1.030 (1.010-1.025); Urobilinogen,Urine Normal (Normal)
[2021-10-22 01:37] LABS: Influenza A PCR Negative (Negative); Influenza B PCR Negative (Negative); Resp. Syncytial Virus PCR Negative (Negative)
[2021-10-22 01:48] LABS: SARS-CoV-2 by PCR (In House) Negative (Negative)
[2021-10-22] MEDS ORDERED: Melatonin 3 MG TABLET PO PRN (02:52)
[2021-10-22] MEDS ORDERED: Naloxone 0.4 MG/ML INJ IVP PRN (02:52)
[2021-10-22] MEDS ORDERED: 0.9 % Sodium Chloride 1,000 ML IVC SCH (03:30)
[2021-10-22] MEDS ORDERED: *HR* HYDROcodone/Acet 5/325 mg TABLET PO PRN (04:37)
[2021-10-22] MEDS: *HR* Heparin 5,000 UNIT/ML VIAL SQ SCH ×2 (05:08→18:34)
[2021-10-22 06:48] LABS: Hematocrit 34.8 % (35.3-44.9); Mean Corpuscular HGB Conc 31.6 g/dL (31.6-35.5); Mean Corpuscular Hemoglobin 29.3 pg (28.0-33.3); Mean Corpuscular Volume 92.8 fL (83.0-100.0); Mean Platelet Volume 8.7 fL (9.4-12.4); Platelet Count 230 K/mcL (140-400); Red Blood Count 3.75 M/mcL (3.82-4.97); Red Cell Distribution Width 12.5 % (11.5-14.5); White Blood Count 7.1 K/mcL (4.3-11.1)
[2021-10-22 07:04] LABS: BUN/Creatinine Ratio 33 (6-26); Blood Urea Nitrogen 8 mg/dL (6-20); Calcium 8.7 mg/dL (8.6-10.3); Carbon Dioxide 25 mEq/L (23-29); Chloride 109 mEq/L (98-107); Glucose 111 mg/dL (70-105); Magnesium 1.8 mg/dL (1.6-2.6); Osmolality,Calculated 289 (280-300); Phosphorous 3.2 mg/dL (2.7-4.5); Potassium 3.5 mEq/L (3.5-5.1); Sodium 140 mEq/L (136-145); eGFR For African Americans > 60 (> 60); eGFR For Non-African Americans > 60 (> 60)
[2021-10-22] MEDS: Baclofen 10 MG TABLET PO SCH ×3 (08:55→22:18)
[2021-10-22] MEDS ORDERED: Diclofenac Sodium [Arthritis Pain] 100 GM Gel..Gram TP PRN (10:20)
[2021-10-22] MEDS: Gabapentin 300 MG CAPSULE PO SCH ×2 (15:12→22:18)
[2021-10-22] MEDS ORDERED: cefTRIAXone 1,000 MG in 0.9 % Sodium Chloride Mini Bag 100 ML IVPB SCH (23:00)
[2021-10-23] MEDS: *HR* Heparin 5,000 UNIT/ML VIAL SQ SCH ×2 (05:55→17:33)
[2021-10-23 06:24] LABS: BUN/Creatinine Ratio 14 (6-26); Blood Urea Nitrogen 4 mg/dL (6-20); Calcium 9.2 mg/dL (8.6-10.3); Carbon Dioxide 24 mEq/L (23-29); Chloride 105 mEq/L (98-107); Potassium 4.2 mEq/L (3.5-5.1); Sodium 139 mEq/L (136-145); eGFR For African Americans > 60 (> 60); eGFR For Non-African Americans > 60 (> 60)
[2021-10-23] MEDS ORDERED: PARoxetine 20 MG TABLET PO SCH (09:00)
[2021-10-23 09:19] LABS: Glucose 91 mg/dL (70-105); Osmolality,Calculated 284 (280-300)
[2021-10-23 10:23] LABS: Basophils # 0.1 K/mcL (0.0-0.2); Basophils % 1.1 %; Eosinophils # 0.2 K/mcL (0.0-0.6); Eosinophils % 2.8 %; Hematocrit 35.3 % (35.3-44.9); Hemoglobin 11.3 g/dL (11.5-15.4); Immature Granulocytes % 2.2 % (0-4); Lymphocytes # 2.8 K/mcL (0.6-4.6); Lymphocytes % 43.4 %; Mean Corpuscular Volume 90.5 fL (83.0-100.0); Mean Platelet Volume 9.1 fL (9.4-12.4); Monocytes # 0.4 K/mcL (0.0-1.3); Monocytes % 6.3 %; Neutrophils # 2.8 K/mcL (1.6-8.9); Nucleated Red Blood Cells 0.5 /100 WBC (0); Platelet Count 249 K/mcL (140-400); Red Cell Distribution Width 12.5 % (11.5-14.5); Segmented Neutrophils % 44.2 %
[2021-10-23 10:41] LABS: White Blood Count 6.4 K/mcL (4.3-11.1)
[2021-10-23] MEDS: Gabapentin 300 MG CAPSULE PO SCH ×2 (12:42→17:34)
[2021-10-23] MEDS: Baclofen 10 MG TABLET PO SCH ×2 (12:43→17:34)
[2021-10-23 13:23] VITALS: BP 106/71; PULSE 83; TEMP 99.3; O2SAT 95
== END 2021-10-23 20:15 | disposition home or self-care (01) ==
LOC: EMEROOARM 20:21 → 3NENU 20:21 → SUATTDRO 10-22 02:10 → 3NENU 10-22 03:03
PROVIDERS: ADMIT Student in an Organized Health Care Education/Training Program; ATTEND Family Medicine

== ENCOUNTER 2021-12-05 16:21 | Observation (INO) ==
[2021-12-05] MEDS ORDERED: 0.9 % Sodium Chloride 1,000 ML IVC ONE ×3 (17:08→20:17)
[2021-12-05 18:46] LABS: Basophils % 0.4 %; Eosinophils # 0.1 K/mcL (0.0-0.6); Eosinophils % 0.9 %; Hematocrit 37.8 % (35.3-44.9); Hemoglobin 12.2 g/dL (11.5-15.4); Immature Granulocytes % 0.1 % (0-4); Lymphocytes # 2.6 K/mcL (0.6-4.6); Lymphocytes % 34.9 %; Mean Corpuscular HGB Conc 32.3 g/dL (31.6-35.5); Mean Corpuscular Hemoglobin 29.8 pg (28.0-33.3); Mean Corpuscular Volume 92.2 fL (83.0-100.0); Mean Platelet Volume 8.8 fL (9.4-12.4); Monocytes # 0.6 K/mcL (0.0-1.3); Monocytes % 8.2 %; Neutrophils # 4.1 K/mcL (1.6-8.9); Platelet Count 293 K/mcL (140-400); Red Cell Distribution Width 12.6 % (11.5-14.5); Segmented Neutrophils % 55.5 %; White Blood Count 7.4 K/mcL (4.3-11.1)
[2021-12-05] MEDS ORDERED: *HR* HYDROcodone/Acet 5/325 mg TABLET PO ONE (18:56)
[2021-12-05 18:57] LABS: INR 1.3; Prothrombin Time 14.3 Seconds (9.4-12.1)
[2021-12-05 19:05] LABS: Alanine Aminotransferase 17 Units/L (7-52); Albumin 4.1 g/dL (3.5-5.7); Albumin/Globulin Ratio 1.6 (1.1-2.2); Alkaline Phosphatase 70 Units/L (34-104); Aspartate Amino Transferase 20 Units/L (13-39); BUN/Creatinine Ratio 27 (6-26); Bilirubin,Indirect 0.4 mg/dL (0.0-1.0); Bilirubin,Total 0.4 mg/dL (0.3-1.0); Blood Urea Nitrogen 10 mg/dL (6-20); Carbon Dioxide 28 mEq/L (23-29); Chloride 103 mEq/L (98-107); Globulin 2.6 g/dL (2.4-3.5); Glucose 108 mg/dL (70-105); Osmolality,Calculated 284 (280-300); Potassium 3.5 mEq/L (3.5-5.1); Sodium 137 mEq/L (136-145); Total Protein 6.7 g/dL (6.4-8.9); eGFR For African Americans > 60 (> 60); eGFR For Non-African Americans > 60 (> 60)
[2021-12-05 19:20] LABS: Bacteria,Urine Moderate per hpf (None-Few); Bilirubin,Urine Negative (Negative); Blood,Urine Small (Negative); Budding Yeast,Urine Few per hpf (None Seen); Clarity,Urine Turbid (Clear); Color,Urine Yellow (Yellow); Glucose,Urine (UA) Normal (Normal); Hyaline Casts,Urine Few per lpf (None Seen); Ketones,Urine Negative (Negative); Leukocyte Esterase,Urine Large (Negative); Mucus,Urine Few per lpf (None-Few); Nitrite,Urine Positive (Negative); PH,Urine 6.5 pH Units (5.0-8.0); Protein,Urine 50 mg/dL (Neg-Trace); RBC,Urine 15-30 per hpf (0-3); Specific Gravity,Urine 1.013 (1.010-1.025); Squamous Epithelial Cell,Urine Few per hpf (None-Few); Urobilinogen,Urine Normal (Normal); WBC,Urine TNTC per hpf (0-3)
[2021-12-05] MEDS ORDERED: cefTRIAXone 1,000 MG in Water for inj. (sterile) 10 ML IVP ONE (19:24)
[2021-12-05] MEDS ORDERED: Ondansetron ODT 4 MG TAB.RAPDIS SL PRN (20:11)
[2021-12-05] MEDS ORDERED: Melatonin 3 MG TABLET PO PRN (20:11)
[2021-12-05] MEDS ORDERED: Naloxone 0.4 MG/ML INJ IVP PRN (20:11)
[2021-12-05] MEDS ORDERED: Ringers Solution, Lactated 1,000 ML IVC SCH (20:45)
[2021-12-05] MEDS: Baclofen 10 MG TABLET PO SCH (22:07)
[2021-12-05] MEDS: Gabapentin 300 MG CAPSULE PO SCH (22:07)
[2021-12-05] MEDS ORDERED: Morphine Sulfate 2 MG/ML SYRINGE IVP PRN (22:55)
[2021-12-06 03:00] LABS: Basophils % 0.5 %; Eosinophils # 0.1 K/mcL (0.0-0.6); Eosinophils % 1.4 %; Hematocrit 39.2 % (35.3-44.9); Hemoglobin 12.5 g/dL (11.5-15.4); Immature Granulocytes % 0.2 % (0-4); Lymphocytes # 1.3 K/mcL (0.6-4.6); Lymphocytes % 23.7 %; Mean Corpuscular HGB Conc 31.9 g/dL (31.6-35.5); Mean Corpuscular Hemoglobin 29.4 pg (28.0-33.3); Mean Corpuscular Volume 92.2 fL (83.0-100.0); Mean Platelet Volume 8.9 fL (9.4-12.4); Monocytes # 0.5 K/mcL (0.0-1.3); Monocytes % 8.7 %; Neutrophils # 3.7 K/mcL (1.6-8.9); Platelet Count 225 K/mcL (140-400); Red Blood Count 4.25 M/mcL (3.82-4.97); Red Cell Distribution Width 12.6 % (11.5-14.5); Segmented Neutrophils % 65.5 %; White Blood Count 5.6 K/mcL (4.3-11.1)
[2021-12-06 03:23] LABS: Alanine Aminotransferase 15 Units/L (7-52); Albumin 3.6 g/dL (3.5-5.7); Albumin/Globulin Ratio 1.4 (1.1-2.2); Alkaline Phosphatase 64 Units/L (34-104); Aspartate Amino Transferase 19 Units/L (13-39); BUN/Creatinine Ratio 33 (6-26); Bilirubin,Total 0.3 mg/dL (0.3-1.0); Blood Urea Nitrogen 7 mg/dL (6-20); Calcium 8.6 mg/dL (8.6-10.3); Carbon Dioxide 25 mEq/L (23-29); Chloride 110 mEq/L (98-107); Globulin 2.5 g/dL (2.4-3.5); Glucose 108 mg/dL (70-105); Magnesium 1.8 mg/dL (1.6-2.6); Osmolality,Calculated 289 (280-300); Phosphorous 3.1 mg/dL (2.7-4.5); Potassium 3.7 mEq/L (3.5-5.1); Sodium 140 mEq/L (136-145); Total Protein 6.1 g/dL (6.4-8.9); eGFR For African Americans > 60 (> 60); eGFR For Non-African Americans > 60 (> 60)
[2021-12-06] MEDS: *HR* Heparin 5,000 UNIT/ML VIAL SQ SCH ×2 (05:58→18:16)
[2021-12-06] MEDS: Gabapentin 300 MG CAPSULE PO SCH ×3 (10:03→20:33)
[2021-12-06] MEDS: Baclofen 10 MG TABLET PO SCH ×3 (10:03→20:33)
[2021-12-06] MEDS: Linezolid 600 MG TABLET PO SCH ×2 (10:03→20:33)
[2021-12-06] MEDS: cefTRIAXone 1,000 MG in 0.9 % Sodium Chloride Mini Bag 100 ML IVPB SCH (18:20)
[2021-12-07] MEDS: *HR* HYDROcodone/Acet 5/325 mg TABLET PO PRN (02:07)
[2021-12-07] MEDS: *HR* Heparin 5,000 UNIT/ML VIAL SQ SCH ×2 (05:19→18:27)
[2021-12-07] MEDS ORDERED: 0.9 % Sodium Chloride 1,000 ML IV ONE (07:31)
[2021-12-07] MEDS: Linezolid 600 MG TABLET PO SCH ×2 (08:58→21:05)
[2021-12-07] MEDS: Gabapentin 300 MG CAPSULE PO SCH ×3 (08:58→21:05)
[2021-12-07] MEDS: cefTRIAXone 1,000 MG in 0.9 % Sodium Chloride Mini Bag 100 ML IVPB SCH (08:59)
[2021-12-07] MEDS: Baclofen 10 MG TABLET PO SCH ×3 (08:59→21:05)
[2021-12-08] MEDS: *HR* HYDROcodone/Acet 5/325 mg TABLET PO PRN ×2 (02:37→11:49)
[2021-12-08 04:32] LABS: Basophils % 0.6 %; Eosinophils # 0.2 K/mcL (0.0-0.6); Eosinophils % 2.4 %; Hematocrit 39.1 % (35.3-44.9); Hemoglobin 12.5 g/dL (11.5-15.4); Immature Granulocytes % 0.3 % (0-4); Lymphocytes % 28.7 %; Mean Corpuscular Volume 90.7 fL (83.0-100.0); Mean Platelet Volume 8.8 fL (9.4-12.4); Monocytes # 0.5 K/mcL (0.0-1.3); Monocytes % 7.2 %; Neutrophils # 4.3 K/mcL (1.6-8.9); Platelet Count 272 K/mcL (140-400); Red Blood Count 4.31 M/mcL (3.82-4.97); Red Cell Distribution Width 12.5 % (11.5-14.5); Segmented Neutrophils % 60.8 %
[2021-12-08 04:53] LABS: BUN/Creatinine Ratio 14 (6-26); Blood Urea Nitrogen 5 mg/dL (6-20); Carbon Dioxide 26 mEq/L (23-29); Chloride 105 mEq/L (98-107); Glucose 103 mg/dL (70-105); Osmolality,Calculated 286 (280-300); Potassium 3.6 mEq/L (3.5-5.1); Sodium 139 mEq/L (136-145); eGFR For African Americans > 60 (> 60); eGFR For Non-African Americans > 60 (> 60)
[2021-12-08] MEDS: *HR* Heparin 5,000 UNIT/ML VIAL SQ SCH (06:06)
[2021-12-08] MEDS: Gabapentin 300 MG CAPSULE PO SCH (08:00)
[2021-12-08] MEDS: Linezolid 600 MG TABLET PO SCH (08:00)
[2021-12-08] MEDS: cefTRIAXone 1,000 MG in 0.9 % Sodium Chloride Mini Bag 100 ML IVPB SCH (08:00)
[2021-12-08] MEDS: Baclofen 10 MG TABLET PO SCH (08:00)
[2021-12-08 11:08] VITALS: BP 100/62; PULSE 74; TEMP 98; O2SAT 97
== END 2021-12-08 13:22 | disposition home or self-care (01) ==
LOC: EMEROOARM 16:21 → 2NNU 16:21 → SUATTDRO 20:53 → 2NNU 21:57
PROVIDERS: ADMIT Internal Medicine; ATTEND Family Medicine

== ENCOUNTER 2022-01-30 13:19 | Observation (INO) ==
[2022-01-30] MEDS ORDERED: cefTRIAXone 1,000 MG in 0.9 % Sodium Chloride 10 ML IVP ONE (13:44)
[2022-01-30] MEDS ORDERED: 0.9 % Sodium Chloride 1,000 ML IV ONE ×2 (13:50→13:55)
[2022-01-30 15:13] LABS: Basophils % 0.7 %; Eosinophils # 0.1 K/mcL (0.0-0.6); Eosinophils % 1.9 %; Hematocrit 38.5 % (35.3-44.9); Hemoglobin 12.4 g/dL (11.5-15.4); Immature Granulocytes % 0.2 % (0-4); Lymphocytes # 1.2 K/mcL (0.6-4.6); Lymphocytes % 28.8 %; Mean Corpuscular HGB Conc 32.2 g/dL (31.6-35.5); Mean Corpuscular Hemoglobin 28.6 pg (28.0-33.3); Mean Corpuscular Volume 88.9 fL (83.0-100.0); Mean Platelet Volume 8.3 fL (9.4-12.4); Monocytes # 0.3 K/mcL (0.0-1.3); Monocytes % 6.2 %; Neutrophils # 2.6 K/mcL (1.6-8.9); Platelet Count 207 K/mcL (140-400); Red Blood Count 4.33 M/mcL (3.82-4.97); Red Cell Distribution Width 13.4 % (11.5-14.5); Segmented Neutrophils % 62.2 %; White Blood Count 4.2 K/mcL (4.3-11.1)
[2022-01-30 15:20] LABS: INR 1.1; Prothrombin Time 12.8 Seconds (9.4-12.1)
[2022-01-30 15:33] LABS: Alanine Aminotransferase 15 Units/L (7-52); Albumin 4.2 g/dL (3.5-5.7); Albumin/Globulin Ratio 1.3 (1.1-2.2); Alkaline Phosphatase 84 Units/L (34-104); Aspartate Amino Transferase 22 Units/L (13-39); BUN/Creatinine Ratio 29 (6-26); Bilirubin,Direct 0.1 mg/dL (0.0-0.2); Bilirubin,Indirect 0.4 mg/dL (0.0-1.0); Bilirubin,Total 0.5 mg/dL (0.3-1.0); Blood Urea Nitrogen 9 mg/dL (6-20); Calcium 9.2 mg/dL (8.6-10.3); Carbon Dioxide 28 mEq/L (23-29); Chloride 100 mEq/L (98-107); Globulin 3.2 g/dL (2.4-3.5); Glucose 98 mg/dL (70-105); Lipase 31 Units/L (11-82); Magnesium 2.1 mg/dL (1.6-2.6); Osmolality,Calculated 281 (280-300); Phosphorous 4.4 mg/dL (2.7-4.5); Sodium 136 mEq/L (136-145); Total Protein 7.4 g/dL (6.4-8.9); eGFR For African Americans > 60 (> 60); eGFR For Non-African Americans > 60 (> 60)
[2022-01-30 16:01] LABS: Bacteria,Urine Moderate per hpf (None-Few); Bilirubin,Urine Negative (Negative); Blood,Urine Large (Negative); Clarity,Urine Ex.Turbid (Clear); Color,Urine Yellow (Yellow); Glucose,Urine (UA) Normal (Normal); Ketones,Urine Trace mg/dL (Negative); Leukocyte Esterase,Urine Large (Negative); Mucus,Urine Many per lpf (None-Few); Nitrite,Urine Positive (Negative); PH,Urine 6.5 pH Units (5.0-8.0); Protein,Urine 70 mg/dL (Neg-Trace); RBC,Urine TNTC per hpf (0-3); Squamous Epithelial Cell,Urine Few per hpf (None-Few); WBC,Urine TNTC per hpf (0-3)
[2022-01-30] MEDS ORDERED: Milk and Molasses Enema 200 ML RC ONE (17:33)
[2022-01-30] MEDS ORDERED: MetroNIDAZOLE 500 MG/100 ML 500 MG/100 ML BAG IVPB ONE (17:33)
[2022-01-30] MEDS ORDERED: Ondansetron 4 MG/2 ML VIAL IVP PRN (17:40)
[2022-01-30] MEDS ORDERED: Naloxone 0.4 MG/ML INJ IVP PRN (17:40)
[2022-01-30] MEDS ORDERED: *HR* HYDROcodone/Acet 5/325 mg TABLET PO PRN (17:42)
[2022-01-30] MEDS: 0.9 % Sodium Chloride 1,000 ML IVC SCH (20:07)
[2022-01-30] MEDS: Baclofen 10 MG TABLET PO SCH (20:08)
[2022-01-30] MEDS: Gabapentin 300 MG CAPSULE PO SCH (20:08)
[2022-01-30] MEDS: *HR* Heparin 5,000 UNIT/ML VIAL SQ SCH (20:18)
[2022-01-30] MEDS ORDERED: Famotidine 20 MG/2 ML VIAL IVP ONE (22:38)
[2022-01-31 03:20] LABS: Basophils % 0.4 %; Eosinophils # 0.1 K/mcL (0.0-0.6); Eosinophils % 0.8 %; Hematocrit 36.2 % (35.3-44.9); Hemoglobin 11.6 g/dL (11.5-15.4); Immature Granulocytes % 0.3 % (0-4); Lymphocytes # 0.8 K/mcL (0.6-4.6); Lymphocytes % 11.8 %; Mean Corpuscular Hemoglobin 28.4 pg (28.0-33.3); Mean Corpuscular Volume 88.5 fL (83.0-100.0); Mean Platelet Volume 8.7 fL (9.4-12.4); Monocytes # 0.6 K/mcL (0.0-1.3); Monocytes % 8.1 %; Neutrophils # 5.6 K/mcL (1.6-8.9); Platelet Count 207 K/mcL (140-400); Red Blood Count 4.09 M/mcL (3.82-4.97); Red Cell Distribution Width 13.5 % (11.5-14.5); Segmented Neutrophils % 78.6 %
[2022-01-31 03:21] LABS: White Blood Count 7.1 K/mcL (4.3-11.1)
[2022-01-31 03:36] LABS: BUN/Creatinine Ratio 20 (6-26); Blood Urea Nitrogen 7 mg/dL (6-20); Calcium 8.5 mg/dL (8.6-10.3); Carbon Dioxide 26 mEq/L (23-29); Chloride 106 mEq/L (98-107); Glucose 119 mg/dL (70-105); Osmolality,Calculated 283 (280-300); Phosphorous 3.8 mg/dL (2.7-4.5); Potassium 4.1 mEq/L (3.5-5.1); Sodium 137 mEq/L (136-145); eGFR For African Americans > 60 (> 60); eGFR For Non-African Americans > 60 (> 60)
[2022-01-31] MEDS: 0.9 % Sodium Chloride 1,000 ML IVC SCH (04:46)
[2022-01-31] MEDS: *HR* Heparin 5,000 UNIT/ML VIAL SQ SCH (05:23)
[2022-01-31 07:55] VITALS: O2SAT 96
[2022-01-31] MEDS ORDERED: cefTRIAXone 1,000 MG in Water for inj. (sterile) 10 ML IVP SCH (09:00)
[2022-01-31] MEDS ORDERED: polyethylene glycoL 3350 17 GM POWD.PACK PO SCH (09:00)
[2022-01-31] MEDS: Baclofen 10 MG TABLET PO SCH (09:13)
[2022-01-31] MEDS: Gabapentin 300 MG CAPSULE PO SCH (09:13)
[2022-01-31 10:49] VITALS: BP 111/68; PULSE 81; TEMP 97.9
== END 2022-01-31 12:06 | disposition home or self-care (01) ==
LOC: 3ANU 13:19 → EMEROOARM 13:19 → 3ANU 18:47
PROVIDERS: ADMIT Student in an Organized Health Care Education/Training Program; ATTEND Student in an Organized Health Care Education/Training Program